=== PATIENT | male | born 1995 ===

== ENCOUNTER 2017-06-12 20:14 | Emergency (ER) | payer OTHER ==
--- NOTE | 2017-06-12 21:55 | ED ---
Influenza-Like Illness - HPI Summary HPI Summary: 21 male presents to ED with complaints of sore throat, nausea, vomiting, diarrhea, cough and fever that has been ongoing for the past 1-2 days. Patient states he woke up today with symptoms, vomited once and 2 episodes of loose stool. Admits to body aches. Nonproductive cough mostly. Fever of 101F with chills. PMHx includes pneumonia. States he got back from [place], where he lives , 2 days ago. Was suffering from head cold while in [place] but has since improved until symptoms began today, much worse. Has been taking ibuprofen for fever/body aches with last dose being around 3pm today. Denies trouble breathing and chest pain. No other complaints. No PMHx other than pneumonia. [place] in [place], no other known infectious disease in the area. No abdominal pain. No blood in vomit or diarrhea. Has not eaten or drank any take out food or out of the ordinary in the last few days. Is able to drink water and tolerate PO. Has not had the flu shot this year. Immunizations are UTD. No joint aches, headache or yellowing of skin. - History of Current Complaint Chief Complaint: EDFluSymptoms Time Seen by Provider: 06/12/17 21:17 Hx Obtained From: Patient Onset/Duration: Sudden Onset, Lasting Days - 1-2, Still Present Severity: Moderate Associated Signs & Symptoms: Fever, Myalgia, Cough, Sore Throat, Nasal Congestion, Vomiting, Diarrhea - Allergy/Home Medications Allergies/Adverse Reactions: Allergies Allergy/AdvReac Type Severity Reaction Status Date / Time No Known Allergies Allergy Verified 06/12/17 20:18 PMH/Surg Hx/FS Hx/Imm Hx Endocrine/Hematology History: Denies: Hx Anticoagulant Therapy Cardiovascular History: Denies: Hx Hypertension Respiratory History: Denies: Hx Asthma - Surgical History Surgery Procedure, Year, and Place: n/a - Immunization History Immunizations Up to Date: Yes Infectious Disease History: No Infectious Disease History: Reports: Traveled Outside the [place] in Last 30 Days - [place] - Family History Known Family History: Positive: None - Social History Alcohol Use: Occasionally Substance Use Type: Reports: None Smoking Status (MU): Never Smoked Tobacco Review of Systems Positive: Fever, Chills Positive: Sore Throat Cardiovascular: Negative Positive: Cough Positive: Vomiting, Diarrhea, Nausea Positive: Myalgia All Other Systems Reviewed And Are Negative: Yes Physical Exam Triage Information Reviewed: Yes Vital Signs On Initial Exam: Initial Vitals Temp Pulse Resp BP Pulse Ox 100.7 F 103 16 108/78 98 06/12/17 20:18 06/12/17 20:18 06/12/17 20:18 06/12/17 20:18 06/12/17 20:18 temp and slight tachycardia noted, improved to 87bpm, O2 100% Vital Signs Reviewed: Yes Appearance: Positive: No Pain Distress, Well-Nourished, Ill-Appearing Skin: Positive: Warm, Skin Color Reflects Adequate Perfusion, Dry. Negative: Cold, Numb, Jaundiced, Pale, Erythema @ Head/Face: Positive: Normal Head/Face Inspection Eyes: Positive: Conjunctiva Clear ENT: Positive: Hearing grossly normal, Pharynx normal, Nasal congestion, TMs normal, Uvula midline Dental: Positive: Cervical Lymphadenopathy Neck: Positive: Supple, Nontender Respiratory/Lung Sounds: Positive: Clear to Auscultation, Breath Sounds Present. Negative: Rales, Rhonchi, Wheezes Cardiovascular: Positive: Normal, RRR, Pulses are Symmetrical in both Upper and Lower Extremities. Negative: Murmur, Rub Abdomen Description: Positive: Nontender, No Organomegaly, Soft Bowel Sounds: Positive: Present Musculoskeletal: Positive: Normal, Strength/ROM Intact. Negative: Limited @, Pain @ Neurological: Positive: Normal, Sensory/Motor Intact, Alert, Oriented to Person Place, Time, CN Intact II-III, Reflexes Intact, NV Bundle Intact Distally, Normal Gait Diagnostics - Vital Signs Vital Signs Temp Pulse Resp BP Pulse Ox 06/12/17 20:18 100.7 F 103 16 108/78 98 - Laboratory Lab Statement: Any lab studies that have been ordered have been reviewed, and results considered in the medical decision making process. Flu Symptom Course/Dx - Course Course Of Treatment: influenza obtained and negative. patient appears to be suffering from influenza like viral illness. does not fit typical clinical manifestation of yellow fever, no jaundice, abdominal pain headache or joint aches. Normal PE findings. Normal vitals other than low grade fever. given tylenol and zofran for fever and nausea, had relief. continue at home for fever and nausea. aware of worsening signs and symptoms to watch out for. fluids, rest. follow up with PCP and recheck. no other emergent concerns at this time. is able to tolerate po. did consider chikungunya virus infection as well due to travel to [place] however does not appear to be experiencing typical clinical manifests/symptoms at this time. - Diagnoses Differential Diagnosis/HQI/PQRI: Positive: Influenza, Upper Respiratory Infection, Other Provider Diagnoses: Viral syndrome Discharge - Discharge Plan Condition: Stable Disposition: HOME Prescriptions: Ondansetron ODT TAB* [Zofran 4 MG Odt TAB*] 4 mg PO Q6H PRN #10 tab.odt PRN Reason: Nausea Patient Education Materials: Influenza (ED), Viral Syndrome (ED) Referrals: [facility] - [facility] AGUIAR [Primary Care Provider] - Additional Instructions: Continue taking ibuprofen/tylenol alternating for fever and body aches. Take prescribed medication as directed to help with nausea. Increase fluid intake to stay well hydrated and help with illness, this is very important. Get plenty of rest. [place] diet including bananas, rice, applesauce and toast to help with diarrhea and nausea. Cover mouth when coughing and wash hands frequently. Any new or worsening symptoms or symptoms do not improve in 48 hours please seek medical attention promptly, as discussed. Follow up with PCP for re-check in 1-2 days.
[2017-06-12] MEDS ORDERED: Ondansetron ODT TAB* 4 MG PO ONE (22:44)
[2017-06-12] MEDS ORDERED: Acetaminophen TAB* 325 MG PO ONE (22:44)
[2017-06-12] MEDS ORDERED: Oseltamivir CAP* 75 MG PO ONE (22:56)
[2017-06-12 23:18] VITALS: BP 106/67
== END 2017-06-12 23:17 | disposition home or self-care (01) ==
LOC: ED 20:14
DX: B34.9 Viral infection, unspecified (principal)
CPT/HCPCS: 87502; 99282; A9270-GY